=== PATIENT | female | born 1955 | race American Indian/Alaskan Native ===

== ENCOUNTER 2016-11-05 08:55 | Outpatient (CLI) | payer OTHER ==
--- NOTE | 2016-11-05 09:55 | Mammography Report ---
LEFT DIGITAL DIAGNOSTIC MAMMOGRAM : 11/05/16 08:55:00 CLINICAL: Abnormal screening mammogram. COMPARISON:[facility] screening from 08/21/16 FINDINGS: ML and spot compression MLO and CC views were performed. Satisfactory effacement of the previously described asymmetry on the MLO view. IMPRESSION: Negative Mammogram. BI-RADS CATEGORY: 1 -- Negative RECOMMENDATION: Routine mammographic screening in one year. ACR BI-RADS MAMMOGRAPHIC CODES: 0 = Needs additional imaging evaluation; 1 = Negative; 2 = Benign; 3 = Probably benign; 4 = Suspicious; 5 = Malignant; 6 = Known biopsy-proven malignancy COMMENT: 1. Dense breast tissue, i.e., adenosis, fibrocystic changes, etc., may obscure an underlying neoplasm. 2. Approximately 10% of cancers are not detected with mammography. 3. A negative mammography report should not delay biopsy if a clinically suspicious mass is present. COMMENT: Patient follow-up letters are generated via our [employer] application.
== END 2016-11-05 08:56 | disposition home or self-care (01) ==
LOC: MAMMO 08:55
DX: R92.8 Other abnormal and inconclusive findings on diagnostic imaging of breast (principal)
CPT/HCPCS: G0206-LT

== ENCOUNTER 2017-06-01 05:49 | Day surgery (SDC) | payer OTHER ==
[~2017-06-01 05:49] MED LIST: ANCEF/STERILE WATER 2 GM/20 ML IV NR; DECADRON IV ONE
[2017-06-01] MEDS ORDERED: NACL BACTERIOSTATIC INFILTRATI ONE (06:29)
[2017-06-01] MEDS ORDERED: MARCAINE 0.25% INFILTRATI ONE ×2 (07:06→07:40)
[2017-06-01] MEDS ORDERED: XYLOCAINE 1% 20 mL ONE (07:06)
[2017-06-01] MEDS ORDERED: DILAUDID IV PRN (07:08)
[2017-06-01] MEDS ORDERED: SUBLIMAZE IV PRN (07:08)
[2017-06-01] MEDS ORDERED: ZOFRAN IV PRN (07:08)
--- NOTE | 2017-06-01 07:09 | Anesthesia Day of Surgery ---
Anesthesia Day of Surgery - Day of Surgery Patient Examined: Yes Patient H&P Reviewed: Yes Patient is NPO: Yes
--- NOTE | 2017-06-01 07:10 | Anesthesia Consultation ---
Anesthesia Consult and Med Hx Date of service: 06/01/17 - Airway Anesthetic Teeth Evaluation: Poor, Partials ROM Head & Neck: Adequate Mental/Hyoid Distance: Adequate Mallampati Class: Class II Intubation Access Assessment: Probably Good - Pulmonary Exam CTA: Yes - Cardiac Exam Cardiac Exam: RRR - Pre-Operative Health Status ASA Pre-Surgery Classification: ASA3 - Pulmonary Hx Smoking: Yes (STOPPED X 1 WEEK , 1/2 PPD X 7 YRS) Hx Asthma: Yes ( CHILD) Hx Sleep Apnea: No (KUNAL PRE SCREEN LOW RISK.) - Cardiovascular System Hx Hypertension: Yes (X 8 YRS) - Endocrine Hx Cirrhosis: No - Other Systems Hx Cancer: No
[2017-06-01] MEDS ORDERED: DIPRIVAN 10 MG/ML IV ONE (07:15)
[2017-06-01] MEDS ORDERED: DECADRON ONE ×3 (07:17→07:56)
[2017-06-01] MEDS ORDERED: XYLOCAINE MPF 2% ONE (07:17)
[2017-06-01] MEDS ORDERED: ZOFRAN ONE (07:18)
[2017-06-01] MEDS ORDERED: DILAUDID ONE (07:18)
[2017-06-01] MEDS ORDERED: DECADRON IV ONE ×2 (07:35→08:25)
[2017-06-01] MEDS ORDERED: XYLOCAINE 1% 20 mL INFILTRATI ONE (07:40)
[2017-06-01] MEDS ORDERED: PEPCID IV NR (08:00)
[2017-06-01] MEDS ORDERED: NACL 0.9% 1000 ML 1,000 ML IV SCH (08:00)
[2017-06-01] MEDS ORDERED: VERSED IV NR (08:00)
[2017-06-01] MEDS ORDERED: TORADOL IV ONE (09:04)
--- NOTE | 2017-06-01 09:34 | Post Anesthesia Evaluation ---
- Post Anesthesia Evaluation Patient Participated: Yes Airway Patent: Yes Stable Respiratory Function: Yes Nausea/Vomiting: No Temp > 96.8F: Yes Pain Manageable: Yes Adequeate Hydration: Yes Anesthesia Complications: No
[2017-06-01 10:26] VITALS: BP 111/79
--- NOTE | 2017-06-09 20:56 | Operative Report ---
PREOPERATIVE DIAGNOSES: 1. Painful bunion, left foot. 2. Painful hammertoe, second digit, left foot. 3. Painful hammertoe, right second digit. POSTOPERATIVE DIAGNOSES: 1. Painful bunion, left foot. 2. Painful hammertoe, second digit, left foot. 3. Painful hammertoe, right second digit. SURGICAL PROCEDURE: 1. Bunionectomy with osteotomy and internal fixation, left. 2. Arthroplasty, second digit below. 3. Cortisone injection, second digit, right foot. ANESTHESIA: General. TOURNIQUET: Pneumatic ankle tourniquet, left ankle. ESTIMATED BLOOD LOSS: Less than 10 mL. PROCEDURE IN DETAIL: The patient was brought in to the operating room and placed on the operating table in supine position. Following intravenous sedation, the patient was given atraumatic intubation, general anesthesia was provided. Let it be noted that 10 mL of 1:1 mixture of 1% lidocaine plain plus 0.5% Marcaine plain infiltrated to the left foot. At this time, 1 mL of dexamethasone phosphate infiltrated to the second digit of the right foot after cleansing with Betadine solution and alcohol. At this time, I had a pneumatic ankle tourniquet placed 2-3 cm proximal to the lateral malleoli of the left foot. At this time, the foot was then scrubbed, prepped and draped in the usual aseptic manner and the procedure was thus begun. At this time, attention was directed to an enlarged first metatarsophalangeal joint of the left foot and second digit proximal interphalangeal joint having bony prominence noted. At this time, with the use of a 10-blade a 6 cm linear longitudinal incision was made at the medial aspect of the first metatarsophalangeal joint and deepened with both sharp and blunt dissection. Also, a two semi-converging elliptical incision was made at the ____ plane of the second digit at approximately at the ____ joint. At this time, attention was redirected to the first metatarsophalangeal joint. All neurovascular structures were protected and vessels were cauterized as needed. At this time, deep dissection carried down deep to the first metatarsophalangeal joint and it was still as noted to be an enlarged first metatarsal head. At this time, the area was thus evaluated and a 3 mm wedge was removed from the proximal medial aspect of the proximal phalanx and the distal first metatarsal head medially and dorsally. At this time, the medial pros and adductor release was done in the first interspace. There was still noted to be more reduction needed. Therefore, a Z osteotomy was thus performed at the first ray and internal fixation was used at this time. All redundant tissue was removed without incident and the head was held in a more reduced position and all redundant tissue was thus removed without incident. Deep closure was performed with 3-0 Vicryl followed by 4-0 Vicryl and 4-0 Prolene with subcuticular stitches. Attention was redirected to the second digit and with a transverse tenotomy, capsulotomy was thus performed at the joint. At this time, there was noted to be an enlarged second proximal phalanx, possibly from previous surgery and at this time the distal head was thus removed and contoured with rotating football bur and fluoroscoped with normal sterile saline. Deep capsular structure was modified and the tendon was reapproximated after flushed copiously with normal sterile saline. A 4-0 Vicryl was used and 4-0 superficial closure was performed. A 1 mL of dexamethasone phosphate was infiltrated into the left foot. Area was dressed with bacitracin ointment, Haroldo, and sterile compressive dressings. Let it be noted, the Steri-Strips were placed on the first ray. Pneumatic ankle tourniquet was deflated with a prompt hyperemic response to all digits of the left foot and right foot. The patient tolerated the procedure and anesthesia well. Atraumatic intubation was thus performed. The patient was transferred to recovery, which will be monitored and released home with postop instructions. JOB# [id number] CYNTHIA/DONNELL
== END 2017-06-01 10:22 | disposition home or self-care (01) ==
LOC: OR 05:49
PROVIDERS: ATTEND Podiatrist Foot & Ankle Surgery
DX: M21.612 Bunion of left foot (principal); M20.42 Other hammer toe(s) (acquired), left foot; M20.41 Other hammer toe(s) (acquired), right foot; I10 Essential (primary) hypertension; J45.909 Unspecified asthma, uncomplicated; Z87.891 Personal history of nicotine dependence; Z91.018 Allergy to other foods; Z91.048 Other nonmedicinal substance allergy status
CPT/HCPCS: 28285; 28292; 36415; 84132; 88304; 88311; J0690; J1100; J1170; J1885; J2250; J2405; J2704; J7030

== ENCOUNTER 2017-06-21 05:45 | Day surgery (SDC) | payer OTHER ==
[2017-06-21] MEDS ORDERED: NACL BACTERIOSTATIC INFILTRATI ONE (06:38)
[2017-06-21] MEDS ORDERED: MARCAINE 0.25% INFILTRATI ONE ×2 (06:47→08:30)
[2017-06-21] MEDS ORDERED: XYLOCAINE 1% 20 mL ONE (06:47)
[2017-06-21] MEDS ORDERED: ANTIBIOTIC OINT TP ONE (06:47)
[2017-06-21] MEDS ORDERED: DECADRON ONE (06:48)
--- NOTE | 2017-06-21 06:51 | Anesthesia Consultation ---
Anesthesia Consult and Med Hx Date of service: 06/21/17 - Airway Anesthetic Teeth Evaluation: Good, Partials ROM Head & Neck: Adequate Mental/Hyoid Distance: Adequate Mallampati Class: Class II Intubation Access Assessment: Good - Pulmonary Exam CTA: Yes - Cardiac Exam Cardiac Exam: RRR - Pre-Operative Health Status ASA Pre-Surgery Classification: ASA3 - Pulmonary Hx Smoking: Yes (STOPPED X 3 WEEK , 1/2 PPD X 7 YRS) Hx Asthma: Yes ( CHILD) Hx Sleep Apnea: No (KUNAL PRE SCREEN LOW RISK.) - Cardiovascular System Hx Hypertension: Yes (X 8 YRS) - Endocrine Hx Cirrhosis: No - Other Systems Hx Cancer: No
--- NOTE | 2017-06-21 07:03 | Anesthesia Day of Surgery ---
Anesthesia Day of Surgery - Day of Surgery Patient Examined: Yes Patient H&P Reviewed: Yes Patient is NPO: Yes Beta Blockers: Yes Cardiac Clearance: Yes Pulmonary Clearance: Yes
[2017-06-21] MEDS ORDERED: SUBLIMAZE ONE (07:04)
[2017-06-21] MEDS ORDERED: DIPRIVAN 10 MG/ML IV ONE ×3 (07:04→09:29)
[2017-06-21] MEDS ORDERED: NACL 0.9% 1000 ML 1,000 ML IV SCH (08:00)
[2017-06-21] MEDS ORDERED: VERSED IV NR (08:00)
[2017-06-21] MEDS ORDERED: DECADRON IV NR (08:00)
[2017-06-21] MEDS ORDERED: NACL 0.9% IR ONE (08:30)
[2017-06-21] MEDS ORDERED: DECADRON IM ONE (08:30)
[2017-06-21] MEDS ORDERED: ANCEF/STERILE WATER 2 GM/20 ML IV NR (08:30)
[2017-06-21] MEDS ORDERED: TRIPLE ANTIBIOTIC TP ONE (08:30)
[2017-06-21] MEDS ORDERED: XYLOCAINE 1% 20 mL INFILTRATI ONE (08:30)
[2017-06-21] MEDS ORDERED: XYLOCAINE MPF 2% ONE (09:19)
[2017-06-21] MEDS ORDERED: NACL 0.9% 1000 ML 1,000 ML ONE (09:19)
[2017-06-21] MEDS ORDERED: SUBLIMAZE IV PRN (09:46)
[2017-06-21] MEDS ORDERED: ZOFRAN IV PRN (09:46)
--- NOTE | 2017-06-21 10:01 | XRay Report ---
RIGHT FOOT, 2 views: History: Right foot bunionectomy. Bunionectomy changes are noted along the distal surface of the first metatarsal. There is no evidence for fracture, bone lesion or erosive joint pathology. The soft tissues are unremarkable. IMPRESSION: Surgical changes as described. No acute process.
[2017-06-21] MEDS ORDERED: PERCOCET 5/325 PO NR (11:00)
[2017-06-21 12:14] VITALS: BP 116/82
--- NOTE | 2017-06-24 22:06 | Operative Report ---
PREOPERATIVE DIAGNOSES: 1. Painful bunion, right foot. 2. Painful contracted and malformed second digit, right foot. 3. Painful stitches, left foot. POSTOPERATIVE DIAGNOSES: 1. Painful bunion, right foot. 2. Painful contracted and malformed second digit, right foot. 3. Painful stitches, left foot. SURGICAL PROCEDURES: 1. Bunionectomy, right foot. 2. Arthroplasty, second digit, right foot. 3. Removal of stitches, left foot. DESCRIPTION OF PROCEDURE: The patient was placed in the supine position after cleansing the right foot with alcohol, 10 mL of 1:1 mixture of 1% lidocaine plain plus 0.25% Marcaine plain was infiltrated into the affected site. After intravenous sedation, the sutures were removed from the left foot, status post removal of bandages without incident and the foot was cleansed with Betadine prior to removal of stitches. Foot was then rewrapped without incident. At this time, attention was redirected to the right foot and with 2-3 cm application of a tourniquet was placed just proximal to both the medial and lateral malleoli and at this time, an Esmarch was used to exsanguinate the patient's foot after thoroughly cleansing the foot with a sterile technique. At this time, the tourniquet was set to 250 mmHg and surgery was done. Attention was directed to the medial aspect of the contracted lateral deviated hallux at the first ray with a 6 cm lineal longitudinal incision was made at the affected area. At this time, two semi-converging elliptical incision was made at the second digit proximal phalanx. Tissue was removed without incident, transverse tenotomy and capsulotomy was performed and there was noted to be a prominent tear at the proximal phalanx secondary to previous surgery. At this time, the surgical neck was removed without incident and the area was contoured with a rotating football bur. At this time, attention was redirected to the first ray and with deep dissection with care being taken to protect all vital neurovascular structures as needed. At this time, the capsular dissection revealed a prominent first metatarsal head. At this time, a 3 mm wedge of tissue was removed from the affected area along with a 2 mm wedge at the proximal phalanx followed by 2 mm wedge at the dorsal first metatarsal head. The area was contoured with a rotate football bur. At this time, it was noted to be more aggressive derotation of the metatarsal. At this time, via a medial approach, a lateral adductor release was performed. Toe was held in a more corrected position, still need more correction, therefore a capsulorrhaphy was performed with the base of the triangular wedge pin dorsal and Lockhart pin plantar medial. At this time, the area was flushed copiously with normal sterile saline and the closure was performed at the capsular structure with 3.0 Vicryl followed by 4.0 subcuticular tissues and at this time 4.0 Prolene was thus used while the foot was held in a more corrected position. Attention was redirected to the second digit and capsular closure was performed with 4.0 Vicryl followed by 4.0 Prolene simple interrupted stitches. 1 mL of dexamethasone phosphate was infiltrated into the affected site. The area was dressed with Steri-Strips, Adaptic and sterile compressive dressing and bacitracin ointment. Pneumatic ankle tourniquet was deflated in a prompt hyperemic response, was noted to all digits of the affected foot. The patient tolerated the procedure and anesthesia well and will be transferred to recovery room where x-rays will be performed and the patient will be sent home with both written and oral instructions. JOB# [id number] CYNTHIA/DONNELL
== END 2017-06-21 11:32 | disposition home or self-care (01) ==
LOC: OR 05:45
PROVIDERS: ATTEND Podiatrist Foot & Ankle Surgery
DX: M21.611 Bunion of right foot (principal); M20.5X1 Other deformities of toe(s) (acquired), right foot; J45.909 Unspecified asthma, uncomplicated; I10 Essential (primary) hypertension; E78.00 Pure hypercholesterolemia, unspecified; Z91.018 Allergy to other foods; Z87.891 Personal history of nicotine dependence
CPT/HCPCS: 10120; 28160; 28291; 36415; 73620; 84132; 88304; 88311; J0690; J1100; J2250; J2704; J3010; J7030; A6250